=== PATIENT | female | born 1950 | race Caucasian/White ===

== ENCOUNTER → 2016-07-20 | Outpatient (CLI) | payer OTHER ==
[~2016-07-20] MED LIST: ASPI1TAB83 PO; CALC-20 PO; LOSA50TA6 PO; MULT-506 PO
== END | disposition home or self-care (01) ==
LOC: C.PATHSPEC 13:20
PROVIDERS: ATTEND Dermatology
DX: L82.1 Other seborrheic keratosis (principal)